=== PATIENT | male | born 1975 | race Caucasian/White ===

== ENCOUNTER 2017-05-26 16:58 | Emergency (ER) | payer SELFPAY ==
[2017-05-26] MEDS ORDERED: METHYLPREDNISOLONE SOD SUCC/PF 125 MG/2 ML VIAL ONE (17:26)
--- NOTE | 2017-05-26 17:27 | ERNOTE ---
Allergy Symptoms - ER Presenting Symptoms: throat swelling, skin rash, dizziness Time Seen by Provider: 05/26/17 17:15 Source: patient Exam Limitations: no limitations Immunizations: IMMUNIZATION HX Immunizations Up to Date No History of Influenza Vaccine No Hx Pneumococcal Vaccination No Allergies/Adverse Reactions: Allergies bee venom protein (honey bee) Allergy (Intermediate, Verified 05/26/17 17:03) Hives Home Medications: HOME MEDICATIONS EPINEPHrine [Epipen 2-Pawan] 0.3 mg IJ ONCE PRN #1 auto.injct 05/26/17 [Last Taken Unknown] - History of Present Illness Narrative: Patient was stuck by a bee iin his right caodaism in his yard and five minutes later started to feel lightheaded, short of breath and felt his throat swelling. He called the ambulance received IV benadryl, started to break out in a rash. On arrival to the hospital he started to feel better, he never had a reaction to bees before Date (Duration): 05/26/17 Time (Timing): 16:30 Treatment WOOD SAWYER:: by sod cutter, benadryl Location skin rash/itching: Present: diffuse Location swelling: Present: tongue Severity shortness of breath: Present: mild Identified cause?: Yes Exposure: Present: bee/wasp sting Modifying Factors (Improves): Reports: medications Similar symptoms previously: No Review of Systems - Review of Systems Constitutional: Absent: recent illness, fever EYE: Absent: double vision ENT: Absent: nose congestion, nasal drainage, sore throat Respiratory: Present: See HPI Cardiology: Absent: chest pain Gastrointestinal/Abdominal: Present: See HPI. Absent: abdominal pain Genitourinary: Present: no symptoms reported Musculoskeletal: Present: no symptoms reported Skin: Present: See HPI, rash Neurological: Absent: headache, weakness, numbness - Patient's Past Medical History Patient History - Medical: No pertinent hx Patient History - Cardiac/Respiratory: No pertinent hx Patient History - Cancer: No Hx of Cancer Patient History - Surgical Procedures: Appendectomy Patient History - Other: None - Social History Living Situations: home Abuse History: No History of abuse Psych History: No pertinent hx Smoking Status: Current every day smoker Have you smoked in the past 12 months: Yes Do you dip or chew tobacco: No Patient requests Smoking Cessation Consult: No Initiate information on Smoking Cessation: No Alcohol Use: none Drug Use: marijuana - Immunizations Immunizations Up to Date: No Hx Pneumococcal Vaccination: No History of Influenza Vaccine: No Physical Exam - Physical Exam General Appearance: Present: wd/wn, alert, no apparent distress Eye Exam: Normal inspection: bilateral, PERRL: bilateral Ears, Nose, Throat: Present: normal pharynx Respiratory: Present: no respiratory distress, normal breath sounds, no accessory muscle use, lungs clear Cardiovascular/Chest: Present: regular rate, rhythm, no murmur Gastrointestinal/Abdominal: Present: nontender, nondistended, soft Extremity Exam: Present: no edema Neurological Exam: Present: alert, oriented, normal mood/affect Skin Exam: Present: normal color, warm/dry, other - generalized hives ED Progress - Vital Signs Patient's Vital Signs:: I have reviewed the patient's vital signs. Vital Signs: Vital Signs 05/26/17 17:03 Temperature 36.0 C L Pulse Rate 65 Respiratory 12 Rate Blood Pressure 118/72 O2 Sat by Pulse 100 Oximetry - Progress/Reassessment Chief Complaint: Allergic Reaction Progress Note-Subjective: 05/26/17 18:02 Patient denies any shortness of breath, no throat swelling, still has hives since he never received epinephrine and is getting better will discharge now Departure Clinical Impression: Allergic reaction to bee sting - Departure Disposition: Home self-care Condition: Good Instructions: Bee, Wasp, or Hornet Sting Referrals: Edel Loja DO [Staff Physician] - Prescriptions: EPINEPHrine [Epipen 2-Pawan] 0.3 mg IJ ONCE PRN #1 auto.injct PRN Reason: Allergic Reaction
[2017-05-26] MEDS ORDERED: METHYLPREDNISOLONE SOD SUCC/PF 125 MG/2 ML VIAL IV ONE (17:31)
[2017-05-26 18:14] VITALS: BP 126/85
== END 2017-05-26 18:11 | disposition home or self-care (01) ==
LOC: ER 16:58
DX: T63.441A Toxic effect of venom of bees, accidental (unintentional), initial encounter (principal); Y92.007 Garden or yard of unspecified non-institutional (private) residence as the place of occurrence of the external cause